=== PATIENT | female | born 1980 | race Caucasian/White ===

== ENCOUNTER 2016-11-06 02:52 | Emergency (ER) | payer OTHER ==
[~2016-11-06] VITALS: Ht 157.5 cm; Wt 80.0 kg
[~2016-11-06 02:52] MED LIST: FIORTAB4 PO; ONDA1TAB16 PO; Z.0.NO CURRENT MEDS
[2016-11-06 02:54] VITALS: BP 137/81; PULSE 78; RESP 18; TEMP 98.5; O2SAT 98
[2016-11-06] MEDS ORDERED: PROZ40CA PO (03:33)
[2016-11-06] MEDS ORDERED: SODIUM CHLOR 0.9% 1000 ML INJ 1,000 ML IV ONE (03:36)
[2016-11-06] MEDS ORDERED: SODIUM CHLORIDE 0.9% FLUSH 10 ML FLUSH IVF PRN (03:45)
[2016-11-06] MEDS ORDERED: diphenhydrAMINE HCL 50 MG/ML VIAL IVP ONE (03:45)
[2016-11-06] MEDS ORDERED: ACETAMINOPHEN 325 MG TAB PO ONE (03:45)
[2016-11-06] MEDS ORDERED: PROCHLORPERAZINE INJ 10 MG/2 ML VIAL IVP ONE (03:45)
[2016-11-06] MEDS ORDERED: PROM25TA10 PO (04:08)
--- NOTE | 2016-11-06 04:09 | PD ---
HPI Chief Complaint: Headache Time Seen by Provider: 03:28 Travel History International Travel<30 days: No Contact w/Intl Traveler<30days: No Traveled to known affect area: No History of Present Illness HPI 36-year-old female reports 20 hours of headache located primarily right retro- orbital and right occipital scalp. She reports suffering similar episodes about 2-3 times per year. The pain is severe. She took Relpax at home and that did not help. Photophobia and phonophobia is reported. Nausea vomiting reported. No fever. She woke up with a headache. No loss of consciousness. PFSH Past Medical History Diabetes: Yes (GESTATIONAL) Diminished Hearing: No Respiratory: Yes (ASTHMA CHILD) Migraines: Yes Tetanus Vaccination: < 5 Years Influenza Vaccination: No ?: Not LMP: 11/03/2016 : 2 Para: 2 Past Surgical History Surgical History: No Previous Surgery Social History Alcohol Use: Yes (rare) Tobacco Use: No Substance Use: No Allergies-Medications (Allergen,Severity, Reaction): Coded Allergies: No Known Allergies (Verified , 11/06/16) Reported Meds & Prescriptions Reported Meds & Active Scripts Active Reported Prozac (Fluoxetine HCl) 40 Mg Cap 60 Mg PO DAILY Review of Systems Except as stated in HPI: all other systems reviewed are Neg Physical Exam Narrative GENERAL: 36-year-old female pleasant well-nourished well-developed SKIN: Focused skin assessment warm/dry. HEAD: Atraumatic. Normocephalic. EYES: Pupils equal and round. No scleral icterus. No injection or drainage. ENT: No nasal bleeding or discharge. Mucous membranes pink and moist. NECK: Trachea midline. No JVD. CARDIOVASCULAR: Regular rate and rhythm. No murmur appreciated. RESPIRATORY: No accessory muscle use. Clear to auscultation. Breath sounds equal bilaterally. GASTROINTESTINAL: Abdomen soft, non-tender, nondistended. Hepatic and splenic margins not palpable. MUSCULOSKELETAL: No obvious deformities. No clubbing. No cyanosis. No edema. NEUROLOGICAL: Awake and alert. No obvious cranial nerve deficits. Motor grossly within normal limits. Normal speech. PSYCHIATRIC: Appropriate mood and affect; insight and judgment normal. Data Data Last Documented VS Vital Signs Date Time Temp Pulse Resp B/P Pulse Ox O2 Delivery O2 Flow Rate FiO2 11/06/16 03:23 20 11/06/16 02:54 98.5 78 137/81 98 Room Air Vital signs reviewed Orders Ecg Monitoring (11/06/16 03:36) Iv Access Insert/Monitor (11/06/16 03:36) Oximetry (11/06/16 03:36) Sodium Chloride 0.9% Flush (Ns Flush) (11/06/16 03:45) Acetaminophen (Tylenol) (11/06/16 03:45) Prochlorperazine Inj (Compazine Inj) (11/06/16 03:45) Diphenhydramine Inj (Benadryl Inj) (11/06/16 03:45) Sodium Chlor 0.9% 1000 Ml Inj (Ns 1000 M (11/06/16 03:36) MDM Medical Decision Making Medical Screen Exam Complete: Yes Emergency Medical Condition: Yes Medical Record Reviewed: Yes Differential Diagnosis Migraine, intracranial hemorrhage, tension headache, meningitis, thrombotic disease cluster headache Narrative Course Abortive therapy given with good effect. The patient's ready for discharge. Diagnosis Primary Impression: Head ache Qualified Code: R51 - Nonintractable headache, unspecified chronicity pattern , unspecified headache type Referrals: Primary Care Physician 2 days Additional Instructions: You have a choice when it comes to health care, and we are glad that you chose [facility]. Hopefully, we have met your expectations on today's visit. You are welcome to return to [facility] at any time, as we are committed to meeting the health care needs of our community. Med/Other Pt SpecificInfo: Prescription(s) given (phen) Scripts Promethazine (Phenergan)25 Mg [id number] Mg PO Q6H PRN (HEADACHE) #10 TAB Ref 0 Prov:Javier Byrne MD 11/06/16 Disposition: 01 DISCHARGE HOME Condition: Stable Javier Byrne MD Nov 06, 2016 04:09
[2016-11-06 04:22] VITALS: RESP 20; O2SAT 100
[2016-11-06 05:19] VITALS: BP 128/60
== END 2016-11-06 05:22 | disposition home or self-care (01) ==
LOC: NEPE 02:52
DX: R51 Headache (principal); H53.141 Visual discomfort, right eye; R11.2 Nausea with vomiting, unspecified
CPT/HCPCS: 96374; 96375; 99284; J0780; J1200; J7030